=== PATIENT | female | born 1985 | race African-American/Black ===

== ENCOUNTER 2016-11-23 10:33 | Emergency (ER) | payer OTHER ==
[~2016-11-23] VITALS: Ht 170.2 cm; Wt 62.7 kg
[2016-11-23 10:44] VITALS: BP 135/89; PULSE 65; RESP 16; O2SAT 100
--- NOTE | 2016-11-23 11:49 | ED.REPORT ---
HPI-Preg Under 20 Weeks Date of Service Nov 23, 2016 ED Provider: Barney Lay MD A 30 year old female with a history of one previous uncomplicated presents to the ED due to spotting, low back pain, and abdominal cramping. The pt noticed the symptoms following intercourse last night. She denies vaginal discharge. The pt was seen two weeks ago for similar symptoms. Her last menstrual period was on 09/23/2016. Nursing Notes Stated Complaint: 7 WKS , BLEEDING Chief Complaint: Female Abdominal Pain Nursing Notes Reviewed: Yes Allergies: Coded Allergies: No Known Allergies (Unverified , 11/23/16) General Time Seen by Provider: 11:14 Chief Complaint Vaginal bleeding Hx Obtained From: Patient, Spouse Arrived By: Walk-in Onset Occurred: 1 day ago Recent Healthcare: Recent doctor visit Similar Sx Previous: Yes Past Medical History Past Medical History Notes: one previous uncomplicated Past Medical History none reported Past Surgical History none reported Smoking History Unknown if Ever Smoker Social History Other Social History: Good social support, Ambulatory Status Independent Review of Systems Constitutional: Denies: Fever Respiratory: Denies: Non-productive cough Cardiovascular: Denies: Chest pain GI: Reports: Abdominal pain (cramping) Female: Reports: Vaginal bleeding - abnl, Denies: Vaginal discharge Musculoskeletal: Reports: Back pain Skin: Denies Rash Complete sys rev & neg: except as marked. Physical Exam Initial Vital Signs Vital Signs (First) Date Time Temp Pulse Resp B/P Pulse Ox O2 Delivery O2 Flow Rate FiO2 11/23/16 10:44 36.1 65 16 135/89 100 Room Air Initial VS: Reviewed General/Constitutional: Awake, Alert Abdomen: Atraumatic, Soft mild suprapubic tenderness Female Genitourinary: Cloud Software Engineer present, Atraumatic, No bleeding, No discharge , No cervical motion tend, Os closed, No adnexal tenderness : Exam deferred ENT: Atraumatic, Airway patent, Mucous membranes moist Respiratory / Chest: Atraumatic, Breath sounds NL, Breath sounds = bilat, No respiratory distress Cardiovascular: Heart rate NL, Regular rhythm, Heart sounds NL Back: Atraumatic, Full range of motion Neurologic: Oriented X3, Speech NL, No motor deficits, No sensory deficits Head / Eyes: Atraumatic, Normocephalic, PERRL, EOMI Neck: Atraumatic, Supple, Full range of motion Upper Extremity / MS: Atraumatic, Full range of motion Lower Extremity / Pelvis / MS: Atraumatic, Full range of motion Psychiatric: Affect NL, Mood NL Interpretation & Diagnostics Interpretation & Diagnostics: Obstetrics US: IMPRESSION: Single living intrauterine fetus with gestational age of 8 weeks and one day by today's ultrasound measurements, concordant with LMP as above. Small josie-gestational hematoma. Dictated by: Tin Edwards M.D. on 11/23/2016 at 12:36 Approved by: Tin Edwards M.D. on 11/23/2016 at 12:40 Lab Results Interpretation Result Diagram: 11/23/16 1220 Test 11/23/16 12:20 White Blood Count 8.7th/mm3 (3.8-10.1) Red Blood Count 4.59mil/mm3 (3.90-5.20) Hemoglobin 12.2g/dL (12.0-15.6) Hematocrit 37.5% (35.0-46.0) Mean Corpuscular Volume 81.7fL (81-100) Mean Corpuscular Hemoglobin 26.6pg (27.0-35.0) Mean Corpuscular Hemoglobin Concent 32.5% (32.0-37.0) Red Cell Distribution Width 12.5% (12.3-15.4) Platelet Count 205bil/L (150-400) HCG Beta Subunit [id number]/mL Hold Higgins Top Tube Received (Received) Re-Eval/Medical Decision Med Decision/Clinical Course 30-year-old female at 8 weeks by last menstrual period presenting complaining of vaginal spotting. She had intercourse last night and noticed some vaginal spotting today. She also had spotting several weeks ago. Os is closed no active bleeding. No cervical motion tenderness or adnexal tenderness. Ultrasound shows live IUP at 8 weeks . Patient is discharged home in good condition with return precautions. Recommend she follow up with SHEETMETAL TRADES WORKER this week. Source of Hx: Old records Re-Evaluation/Progress #1: Time of Eval: 13:21 Patient Status: Condition improved Re-Evaluation/Progress Note: Pt rechecked, who is resting. She is informed of her ultrasound results and diagnosis. The plan for discharge following pelvic exam is discussed. The pt understands and agrees with the plan. All questions are addressed at this time. Re-Evaluation/Progress #2: Time of Eval: 13:35 Patient Status: Condition improved Re-Evaluation/Progress Note: Pt rechecked and pelvic exam is performed. Counseled Regarding: Diagnosis, Lab results, Need for follow-up, When/why to return to ED Discharge & Departure Primary Impression: Vaginal bleeding in Trimester: first trimester Qualified Code: O46.91 - Antepartum hemorrhage, unspecified, first trimester Disposition: Home Discharge Condition All VS Reviewed: Yes Condition: Stable Additional Instructions: Your ultrasound shows a single living intrauterine fetus with gestational age of eight weeks and one day. It also shows a small amount of bleeding. Keep your appointment on the . Follow up with your primary care physician and OBGYN for further evaluation. Return to the ED if you develop any new or worsening symptoms including vomiting, abdominal pain, lightheadedness, chest pain, difficulty breathing, or heavy bleeding. Referrals: [facility] Theresa Attestation Portions of this note were transcribed by Chelsie Mcgregor I, Dr. Lay personally performed the history, physical exam and medical decision-making; I reviewed and confirmed the accuracy of the information in the transcribed note. Signed by: Theresa Gaffney, 11/23/16 and 14:54. copies to: [facility] Barney Lay MD Nov 23, 2016 11:49 CHELSIE MCGREGOR Nov 23, 2016 12:00
[2016-11-23 12:30] LABS: Mean Corpuscular Hemoglobin 26.6 pg (27.0-35.0); Mean Corpuscular Volume 81.7 fL (81-100)
--- NOTE | 2016-11-23 12:40 | DRSVH ---
PROCEDURE: US OB<14 WKS INDICATIONS: vag bleeding 7 weeks OUTSIDE/PRIOR DATING DATA: Last menstrual period (LMP): 09/23/16. LMP-based estimated date of delivery (BRAD): 06/30/17. First dating scan (date and location): 11/23/16. Estimated date of delivery (BRAD) from first dating scan: 07/04/17. TECHNIQUE: Real-time scanning was performed of the fetus and maternal pelvic organs, with image documentation. Endovaginal scanning was also performed to better visualize the fetus and maternal ovaries. COMPARISON: None. FINDINGS: Embryo: OB-MANAGEMENT TRAINER Ultrasound Procedure Report Early Gestation [employer] Start[employer] Rump Length: 1.7 cm Gestational Age (CRL): 8 weeks one day Summary Fetus Summary Heart Rate: 156 Comments: A normal yolk sac is noted. There is a 0.8 x 1.0 x 0.3 cm josie-gestational fluid collectio n presumed hematoma. Measurement variability in dating: +/- 4 weeks by LMP, +/- 7 days by mean sac diameter (use before 6 weeks gestation if crown-rump length not able to be measured), +/- 5 days by crown-rump length (6-12 weeks gestation). Maternal organs: Ovaries unremarkable except for a presumed right sided corpus luteum measuring 0.9 x 0.7 x 0.7 cm. Limited images through the kidneys demonstrate no hydronephrosis. IMPRESSION: Single living intrauterine fetus with gestational age of 8 weeks and one day by today's ultrasound me asurements, concordant with LMP as above. Small josie-gestational hematoma. Dictated by: Tin Edwards M.D. on 11/23/2016 at 12:36 Approved by: Tin Edwards M.D. on 11/23/2016 at 12:40
[2016-11-23 13:51] VITALS: BP 126/76; PULSE 87; RESP 16
== END 2016-11-23 13:50 | disposition home or self-care (01) ==
LOC: SED 10:33
DX: O20.9 Hemorrhage in early pregnancy, unspecified (principal); O99.89 Other specified diseases and conditions complicating pregnancy, childbirth and the puerperium; M54.5 Low back pain; R10.9 Unspecified abdominal pain; Z3A.08 8 weeks gestation of pregnancy

== ENCOUNTER 2016-12-28 11:05 | Emergency (ER) | payer OTHER ==
[~2016-12-28] VITALS: Ht 170.2 cm; Wt 65.0 kg
[2016-12-28 11:06] VITALS: BP 103/54; PULSE 72; RESP 16; O2SAT 98
[2016-12-28] MEDS ORDERED: PYR50 PO (11:08)
[2016-12-28] MEDS ORDERED: PNV1TABL72 PO (11:08)
--- NOTE | 2016-12-28 11:18 | ED.REPORT ---
HPI-Preg Under 20 Weeks Date of Service Dec 28, 2016 ED Provider: Michael Vanegas Pt is an 12 week 31 y/o female presenting to the ED c/o vaginal bleeding onset this morning. She describes her bleeding as mild spotting less than a period. She was here last month for similar symptoms which self- resolved. She c/o associated ongoing nausea, fatigue, and mild abdominal cramping. She had one previous with no complications. She denies severe pain, vomiting, fever, chills, dysuria, urinary frequency. Nursing Notes Stated Complaint: BLEEDING AND Chief Complaint: & Delivery Nursing Notes Reviewed: Yes Allergies: Coded Allergies: No Known Allergies (Unverified , 12/28/16) Scheduled Pnv with Ca,No.72/Iron/FA ( Plus Tablet) 1 Each Tablet 1 TAB PO DAILY Pyridoxine (Vitamin B-6) 50 Mg Tablet 1 TAB PO DAILY General Time Seen by Provider: 11:28 Chief Complaint Vaginal bleeding Context: : Known 1st trim Hx Obtained From: Patient Arrived By: Walk-in Onset Occurred: 1 - 4 hours ago Symptom Duration: Since onset Progression Since Onset: Constant Location: : Abdomen lower Quality: Cramping Severity: Current: Mild Severity: Maximum: Mild Similar Sx Previous: Yes Past Medical History Past Medical History Notes: one previous uncomplicated Past Medical History none reported Past Surgical History none reported Smoking History Unknown if Ever Smoker Social History Other Social History: Good social support, Ambulatory Status Independent Review of Systems Constitutional: Reports: Fatigue, Denies: Chills, Fever Respiratory: Denies: Non-productive cough, Shortness of breath Cardiovascular: Denies: Chest pain, Dyspnea on exertion GI: Reports: Abdominal pain, Nausea, Denies: Vomiting Female: Reports: , Vaginal bleeding - abnl, Denies: Dysuria, Urinary frequency Complete sys rev & neg: except as marked. Physical Exam Initial Vital Signs Vital Signs (First) Date Time Temp Pulse Resp B/P Pulse Ox O2 Delivery O2 Flow Rate FiO2 12/28/16 11:06 36.3 72 16 103/54 98 Room Air Initial VS: Reviewed, Vital signs normal Head / Eyes: Atraumatic, Normocephalic, PERRL ENT: Mucous membranes moist, Conjunctiva normal, No scleral icterus Neck: Supple, Full range of motion Respiratory: No respiratory distress Cardiovascular: Intact distal pulses Extremities: Vascular intact, Neuro intact, No swelling, No tenderness Skin: Warm, Dry, No cyanosis Neurologic: Alert, Oriented, Nonfocal Psychiatric: Mood/affect normal, Behavior normal, Normal thought content General/Constitutional: Awake, Alert, No acute distress, Cooperative, Not toxic appearing Abdomen: Atraumatic, Soft, Non-tender, No guarding, No rebound, No palpable mass Gravid uterus Female Genitourinary: Exam deferred : FHTs NL, FHT present by U/S, Contractions not present Interpretation & Diagnostics Lab Results Interpretation Test 12/28/16 11:36 Lab Results Interpretation: Urine dip negative Re-Eval/Medical Decision Med Decision/Clinical Course Overall reassuring exam, Rh+, minimal spotting, healthy viable looking fetus on bedside ultrasound with positive heart tones. Extensive reassurance and education given. Patient and her feel comfortable with the discharge plan. Return precautions given. Re-Evaluation/Progress #1: Time of Eval: 11:46 Re-Evaluation/Progress Note: Pt rechecked. Bedside US performed. Re-Evaluation/Progress #2: Time of Eval: 12:22 Re-Evaluation/Progress Note: Pt rechecked. Informed pt of plan for treatment. Pt understands and agrees with plan for treatment. F/U and RTER warnings given. All questions addressed. Counseled Regarding: Diagnosis, Lab results, Need for follow-up, When/why to return to ED Discharge & Departure Primary Impression: Vaginal bleeding in Trimester: first trimester Qualified Code: O46.91 - Antepartum hemorrhage, unspecified, first trimester Disposition: Home Discharge Condition All VS Reviewed: Yes Condition: Stable Patient Instructions: (ED) Additional Instructions: I am so sorry that this is happening to you. At this time the baby looks healthy based on our bedside ultrasound. Continue to observe pelvic rest, follow-up with her TRACTOR TRAILER DRIVER in the next 2-3 days. Return to ER if you develop high fever, severe pain, or excessive bleeding concern for hemorrhage or miscarriage. Referrals: [facility] Scribe Attestation Portions of this note were transcribed by Renard Mora. I, Dr. Vanegas personally performed the history, physical exam and medical decision-making; I reviewed and confirmed the accuracy of the information in the transcribed note. Signed by Theresa Dejesus, 12/28/16 - 1130 Michael Vanegas DO Dec 28, 2016 11:18 RENARD MORA Dec 28, 2016 11:19
== END 2016-12-28 12:31 | disposition home or self-care (01) ==
LOC: SED 11:05
DX: O20.9 Hemorrhage in early pregnancy, unspecified (principal); O99.89 Other specified diseases and conditions complicating pregnancy, childbirth and the puerperium; R11.0 Nausea; R53.83 Other fatigue; R10.30 Lower abdominal pain, unspecified; Z3A.12 12 weeks gestation of pregnancy